=== PATIENT | female | born 1945 | race Two or more races ===

== ENCOUNTER 2018-08-16 13:37 | Outpatient (CLI) | payer OTHER | END 2018-08-16 13:57 | disposition home or self-care (01) | LOC: SONOGRAMA 13:37 | DX: N63.22 Unspecified lump in the left breast, upper inner quadrant (principal); N60.11 Diffuse cystic mastopathy of right breast; N60.12 Diffuse cystic mastopathy of left breast ==

== ENCOUNTER 2018-09-04 08:15 | Outpatient (CLI) | payer OTHER ==
[2018-09-04] MEDS ORDERED: FOLGARD TABLET1 EACH PO (13:22)
[2018-09-04] MEDS ORDERED: ALENDRONATE SOD70 MG PO (13:22)
== END 2018-09-04 08:23 | disposition home or self-care (01) ==
LOC: RAD 08:15
DX: I10 Essential (primary) hypertension (principal); C50.212 Malignant neoplasm of upper-inner quadrant of left female breast

== ENCOUNTER 2018-09-06 05:52 | Day surgery (SDC) | payer OTHER ==
[~2018-09-06 05:52] MED LIST: ALENDRONATE SOD70 MG PO; FOLGARD TABLET1 EACH PO
== END 2018-09-06 18:40 | disposition home or self-care (01) ==
LOC: CIR.AMB 05:52
DX: C50.212 Malignant neoplasm of upper-inner quadrant of left female breast (principal); C50.612 Malignant neoplasm of axillary tail of left female breast

== ENCOUNTER 2019-06-09 12:17 | Outpatient (CLI) | payer OTHER | END 2019-06-09 15:32 | disposition home or self-care (01) | LOC: MAMO-SONO 12:17 | DX: Z12.31 Encounter for screening mammogram for malignant neoplasm of breast (principal); Z87.898 Personal history of other specified conditions; N60.11 Diffuse cystic mastopathy of right breast; C50.212 Malignant neoplasm of upper-inner quadrant of left female breast ==

== ENCOUNTER 2020-03-30 10:18 | Outpatient (CLI) | payer OTHER | END 2020-03-30 12:00 | disposition home or self-care (01) | LOC: TOM 10:18 | PROVIDERS: ATTEND Internal Medicine Hematology & Oncology | DX: C50.412 Malignant neoplasm of upper-outer quadrant of left female breast (principal); Z17.0 Estrogen receptor positive status [ER+]; J44.0 Chronic obstructive pulmonary disease with (acute) lower respiratory infection; I25.10 Atherosclerotic heart disease of native coronary artery without angina pectoris; C78.00 Secondary malignant neoplasm of unspecified lung | CPT/HCPCS: 71260; Q9965 ==

== ENCOUNTER 2020-04-05 07:44 | Outpatient (CLI) | payer OTHER | END 2020-04-05 07:54 | disposition home or self-care (01) | LOC: NUCLEAR 07:44 | PROVIDERS: ATTEND Internal Medicine Hematology & Oncology | DX: C50.412 Malignant neoplasm of upper-outer quadrant of left female breast (principal); C79.51 Secondary malignant neoplasm of bone | CPT/HCPCS: 78306; A9503 ==

== ENCOUNTER 2020-07-13 10:08 | Outpatient (CLI) | payer OTHER | END 2020-07-13 10:36 | disposition home or self-care (01) | LOC: MAMO-SONO 10:08 | PROVIDERS: ATTEND Obstetrics & Gynecology Gynecology | DX: N81.11 Cystocele, midline (principal); N60.11 Diffuse cystic mastopathy of right breast; N60.12 Diffuse cystic mastopathy of left breast ==

== ENCOUNTER 2021-07-14 10:38 | Outpatient (CLI) | payer OTHER | END 2021-07-14 10:52 | disposition home or self-care (01) | LOC: MAMO-SONO 10:38 | PROVIDERS: ATTEND Surgery | DX: N60.11 Diffuse cystic mastopathy of right breast (principal); N60.12 Diffuse cystic mastopathy of left breast; C50.412 Malignant neoplasm of upper-outer quadrant of left female breast; Z12.31 Encounter for screening mammogram for malignant neoplasm of breast ==

== ENCOUNTER 2022-07-19 11:52 | Outpatient (CLI) | payer OTHER | END 2022-07-19 11:57 | disposition home or self-care (01) | LOC: MAMO-SONO 11:52 | PROVIDERS: ATTEND Surgery | DX: N60.11 Diffuse cystic mastopathy of right breast (principal); N60.12 Diffuse cystic mastopathy of left breast; C50.412 Malignant neoplasm of upper-outer quadrant of left female breast ==

== ENCOUNTER 2022-07-24 12:53 | Outpatient (CLI) | payer OTHER | END 2022-07-24 12:58 | disposition home or self-care (01) | LOC: RAD 12:53 | PROVIDERS: ATTEND Surgery | DX: S49.91XA Unspecified injury of right shoulder and upper arm, initial encounter (principal) ==

== ENCOUNTER 2024-07-31 11:22 | Outpatient (CLI) | payer OTHER | END 2024-07-31 11:27 | disposition home or self-care (01) | LOC: MAMO-SONO 11:22 | PROVIDERS: ATTEND Surgery | DX: N60.11 Diffuse cystic mastopathy of right breast (principal); N60.12 Diffuse cystic mastopathy of left breast; Z12.31 Encounter for screening mammogram for malignant neoplasm of breast ==

== ENCOUNTER 2025-06-25 10:07 | Outpatient (CLI) | payer OTHER | END 2025-06-25 10:09 | disposition home or self-care (01) | LOC: MAMO-SONO 10:07 | PROVIDERS: ATTEND Internal Medicine Hematology & Oncology | DX: C50.412 Malignant neoplasm of upper-outer quadrant of left female breast (principal); Z85.3 Personal history of malignant neoplasm of breast; Z12.31 Encounter for screening mammogram for malignant neoplasm of breast ==